=== PATIENT | female | born 1970 | race Caucasian/White ===

== ENCOUNTER 2020-06-28 08:26 | Inpatient (IN) | payer OTHER, SELFPAY ==
[2020-06-28] VITALS (10 sets, daily range): BP systolic 126–170; BP diastolic 63–86; PULSE 122–138; RESP 11–18; TEMP 36.3–37.1; O2SAT 97–100; BMI 26.1
--- NOTE | ~2020-06-28 | CT_ITS ---
EXAMINATION: CT abdomen pelvis w con DATE: 06/28/2020 09:41 INDICATION: Abdominal pain and distention for 2 to 3 months. History of alcohol abuse. TECHNIQUE: Computed tomography (CT) of the abdomen and pelvis was performed with 100 cc Omnipaque 350 intravenous contrast. Automated exposure control and iterative reconstruction technique were employe d. Exam dose: 835.11 mGy-cm total exam DLP. COMPARISON: None. FINDINGS: There is moderate moderate elevation right leaf of the diaphragm and atelectasis at the rig ht lung base The lung bases otherwise are clear. Small left pleural effusion. Normal heart size. No pericardial effusion. There is surface nodularity of liver consistent with cirrhosis. Varices and recanalization of umbilic al vein are identified, consistent with portal venous hypertension. There is a large amount of ascites. 4.5 mm hypoattenuating lesion of the right hepatic lobe (series 3 image 48), too small to definitivel y characterize but possibly a small cyst, given its relative fluid attenuation. No other hepatic spac e-occupying mass lesion is evident. The gallbladder is present. No bile duct or pancreatic duct dilatation. No pancreatic mass lesion or calcification. There is a subtle small linear lucency of the spleen; a small laceration is not excluded. The spleen measures upper limits of normal size. No subcapsular hematoma is noted. Normal morphology of the adrenal glands. No suspicious renal mass lesion or urinary tract calculus or hydroureteronephrosis. The urinary bladd er is unremarkable. Uterus and adnexal areas are unremarkable. Normal caliber of the abdominal aorta. No intraperitoneal or retroperitoneal or pelvic mass lesion or adenopathy or ascites is detected. There is nonspecific diffuse thickening of the wall of the colon, suggesting nonspecific colitis. No bowel obstruction is detected. No pneumatosis or intraperitoneal free air. Included skeletal structures are unremarkable other than degenerative changes of the lumbar spine yanet stefani. No suspicious osteolytic or osteoblastic lesions are noted. There is edema of the abdominal and pelvic nagel.. IMPRESSION: Cirrhosis, portal hypertension and prominent ascites Probable small right hepatic cyst Splenic laceration is not excluded. Small left pleural effusion Nonspecific diffuse colon wall thickening, suggesting nonspecific colitis, possibly infectious or inf lammatory Reviewed, dictated and finalized at [facility]. Reviewed, dictated and finalized at location [facility]. N SUPERVISOR IMPRESSION: Cirrhosis, portal hypertension and prominent ascites Probable small right hepatic cyst Splenic laceration is not excluded. Small left pleural effusion Nonspecific diffuse colon wall thickening, suggesting nonspecific colitis, poss ibly infectious or inflammatory
--- NOTE | ~2020-06-28 | US_ITS ---
EXAMINATION: US venous doppler [facility] DATE: 06/30/2020 14:41 INDICATION: Lower limb edema. TECHNIQUE: Grayscale ultrasound images without and with compression and Doppler ultrasound images of the bilateral lower extremity veins were obtained. COMPARISON: None. FINDINGS: The visualized portions of right common femoral vein, profunda (deep) femoral vein, femoral vein, pop liteal vein, peroneal veins, posterior tibial veins, and greater saphenous vein outflow are patent. The visualized portions of left common femoral vein, profunda femoral vein, femoral vein, popliteal v ein, peroneal veins, posterior tibial veins, and greater saphenous vein outflow are patent. IMPRESSION: 1. No deep venous thrombosis. Reviewed, dictated and finalized at location A. SOMNOGRAPHIC TECHNICIAN
--- NOTE | ~2020-06-28 | US_ITS ---
EXAMINATION: US paracentesis abd w/image DATE: 06/28/2020 11:24 INDICATION: Ascites. TECHNIQUE: The procedure and its risks, benefits, and alternatives were discussed with the patient. P otential risks discussed included bleeding and infection. The skin was prepped and draped in sterile fashion. 1% lidocaine was used for local anesthesia. Under ultrasound guidance, a 5 Fr catheter with trochar was advanced into the ascites in the left lower quadrant. Fluid was aspirated. The catheter w as removed, and a dressing was applied. There were no immediate complications. FINDINGS: Ultrasound images demonstrate ascites and the catheter within the fluid. IMPRESSION: 1. Successful ultrasound-guided paracentesis yielding 5000 mL of clear, yellow fluid. Reviewed, dictated and finalized at location A. LIER DIVERSITY DIRECTOR
--- NOTE | 2020-06-28 08:52 | ED.ABDPAIN ---
HPI - Abdominal Pain General Chief Complaint: Abdominal Pain Stated Complaint: fluid retention abd, bowel incont, anxious Time Seen by Provider: 06/28/20 08:38 History of Present Illness HPI narrative: 49 yo female with no significant past medical history presents t the ED for abdominal pain. She reports that her symptoms started toward the ed of last year. Since that time she has developed Diffuse abdominal pain, distension, poor appetite, and jaundice. She reports about 16-18 drinks per week. She does become anxious when she does not drink. No seizure or severe withdrawal symptoms. Related Data Home Medications Medication Instructions Recorded Confirmed No Home Medications 06/28/20 06/28/20 Allergies Allergy/AdvReac Type Severity Reaction Status Date / Time No Known Allergies Allergy Mild Verified 06/28/20 08:50 Review of Systems Review of Systems: All systems reviewed & are unremarkable except as noted in HPI and below Constitutional: Constitutional: Reports fatigue and Denies fever(s) ENT: Denies sore throat Cardiovascular: Cardiovascular: Denies chest pain Respiratory: Respiratory: Reports dyspnea Gastrointestinal: Gastrointestinal: Reports abdominal pain, Denies constipation, Denies diarrhea, Reports nausea and Denies vomiting Genitourinary: Genitourinary: Denies dysuria Musculoskeletal: Musculoskeletal: Denies back pain Neurologic: Denies confusion, Denies numbness and Denies weakness Hematologic/Lymphatic: Hematologic/Lymphatic: Denies easy bleeding PMFSH Past Medical History Medical History Alcohol abuse Surgical History Surgical History History of dilation and curettage (~08/2003) Family History Family History Other Hypertension Social History Social History Social History: The patient lives in [place] with her . She drinks 5 to 6 beers a day. Her Ko is her surrogate decision maker. She wishes to be a full code. Smoking status: Former smoker Tobacco type: cigarettes Alcohol intake: current Drinks per week: 70 Substance use: never Gender identity (if verbalized by the patient): Female Spiritual care concerns: No Exam Const: General: no acute distress, alert and ill appearing chronically Orientation/consciousness: patient oriented x3 HENMT: Head: normal to inspection Neck: Neck: normal visual inspection Chest: Other: Dilated capillaries Resp: Effort & Inspection: normal respiratory effort Auscultation: clear to auscultation bilaterally Cardio: Rate: tachycardic Rhythm: regular rhythm GI: GI Palp: Yes Soft to palpation, Yes Tenderness to palpation present (GI), No Guarding due to palpation present (GI) and No Rebound tenderness present Percussion: Yes Fluid wave present Skin: General skin exam: jaundice Wounds: no wounds Neuro: General: patient oriented x3, moves all extremities and CN's II-XI intact bilaterally Speech: normal speech Extrem: General: edema bilateral Psych: Affect: normal affect Course Vital Signs Vital signs: Vital Signs Temperature 37.1 C 06/28/20 08:45 Pulse Rate 138 H 06/28/20 08:45 Respiratory Rate 16 06/28/20 08:45 Blood Pressure 170/85 H 06/28/20 08:45 Pulse Oximetry 98 06/28/20 08:45 Temperature 36.8 C 06/28/20 16:00 Pulse Rate 123 H 06/28/20 16:00 Respiratory Rate 18 06/28/20 16:00 Blood Pressure 126/63 06/28/20 16:00 Pulse Oximetry 98 06/28/20 16:00 MDM - Abdominal Pain Differential Diagnosis Differential diagnosis: Likely pancreatitis and other (cirrhosis, Hep B/C, alcoholic hepatitis, peritonitis) Medical Records Attestation: I reviewed the patient's medical records. Lab Data Attestation: I reviewed the patient's lab results. Result diagrams: 06/28/20 08:59 06/28
--- NOTE | 2020-06-28 08:59 | ECG_ITS ---
Measurements Intervals [place] Rate: 121 P: 45 MA: 158 QRS: 11 QRSD: 94 T: 49 QT: 312 QTc: 444 Interpretive Statements SINUS TACHYCARDIA INCOMPLETE RIGHT BUNDLE BRANCH BLOCK DELAYED PRECORDIAL R/S TRANSITION ABNORMAL ECG Electronically Signed On 06-28-2020 9:38:08 GLOBAL RECRUITER by Aram Walters D.O.
[2020-06-28 09:07] LABS: Basophils Absolute Auto 0.2 K/mm3 (0.0-0.1); Basophils Percent Auto 0.8 % (0.2-1.2); Eosinophils Absolute Auto 1.1 K/mm3 (0-0.3); Eosinophils Percent Auto 5.4 % (0-4.4); Hematocrit 28.9 % (37.0-47.0); Hemoglobin 10.6 g/dL (12.0-15.0); Immature Granulocyte Absolute 0.38 K/mm3 (0.00-0.031); Immature Granulocyte Percent A 1.9 % (0-0.5); Lymphocytes Absolute Auto 1.76 K/mm3 (0.9-3.2); Mean Corpuscular HGB Conc 36.7 g/dl (32-36); Mean Corpuscular Hemoglobin 39.7 pg (26-34); Mean Corpuscular Volume 108.2 fl (80-100); Mean Platelet Volume 9.8 fl (7.4-10.4); Monocytes Absolute Auto 1.6 K/mm3 (0.1-0.6); Monocytes Percent Auto 8.2 % (2.6-8.5); Neutrophils Absolute Auto 14.6 K/mm3 (1.3-6.7); Neutrophils Percent Auto 74.7 % (45.5-73.1); Platelet Count Result 201 k/mm3 (150-375); Red Blood Count 2.67 M/mm3 (4.2-5.4); Red Cell Distribution Width 13.6 % (11.5-14.5); White Blood Count 19.5 K/mm3 (4.5-10.0)
[2020-06-28 09:18] LABS: INR 1.3; Prothrombin Time 17.2 Seconds (11.1-14.7)
[2020-06-28 09:19] LABS: Partial Thromboplastin Time 33.3 SECONDS (22.3-36.8)
[2020-06-28 09:21] LABS: Alanine Aminotransferase 42 U/L (4-35); Albumin Level 3.3 g/dL (3.5-5.1); Alkaline Phosphatase 530 U/L (38-126); Anion Gap 9 mmol/L (8-16); Aspartate Amino Transferase 170 U/L (14-36); Bilirubin,Total 8.5 mg/dL (0.2-1.3); Blood Urea Nitrogen 3 mg/dL (7-17); Calcium 8.4 mg/dL (8.4-10.2); Carbon Dioxide 26 mmol/L (22-30); Chloride 81 mmol/L (98-107); Estimated CRCL calculation 113 ml/min; Estimated Glomerular Filt Rate > 60; Glucose 112 mg/dL (65-105); Lipase 270 U/L (23-300); Potassium 3.5 mmol/L (3.4-5.0); Sodium 116 mmol/L (137-145)
[2020-06-28] MEDS: SODIUM CHLORIDE 0.9% IV 500 ML 999 ML IV CONT (09:25)
[2020-06-28 09:29] LABS: Ammonia 54 umol/L (9-30)
[2020-06-28 09:35] LABS: Lactic Acid Reflex 2.3 mmol/L (0.7-2.1)
[2020-06-28 10:35] LABS: Hepatitis B Surface Antigen Negative (Negative)
[2020-06-28 10:41] LABS: HAV RESULT Negative (Negative); Hepatitis B Core IgM Result Negative (Negative)
[2020-06-28 10:52] LABS: Hepatitis C Virus Antibody Negative (Negative)
[2020-06-28 12:22] LABS: Reflex Lactic Acid Yes or No Add Lactic
[2020-06-28 13:13] LABS: Appearance Peritoneal Fluid Clear (Clear); Color Peritoneal Fluid Yellow (Colorless); Source Peritoneal Fluid Peritoneal Fluid
[2020-06-28 13:14] LABS: Lymphocytes Peritoneal Fluid 36 %; Macrophages Peritoneal Fluid 2 %; Mesothelial Cells Peritoneal Fluid 21 %; Monocytes Peritoneal Fluid 24 %; Neutrophils Peritoneal Fluid 17 % (0-25); Nucleated Cells Peritoneal Flu 86 /uL (0-500); RBC Peritoneal Fluid 86 /uL (0-100000)
--- NOTE | 2020-06-28 13:25 | ADMGEN ---
This patient, Mary Leon, was admitted to IMU Room 202-01. Patient/family oriented to hospital policies and general routines including ID bracelet, bed and alarms, visiting hours, pain management, procedures, bathroom and other care routines, personal items, smoking policy, room service/diet, and visiting hours. Information on how to activate the Rapid Response Team has been discussed. Patient/Family are encouraged to report perceived risks to care and to ask questions if they do not understand what they are told or what they should do.
[2020-06-28 13:28] LABS: Lactic Acid 1.8 mmol/L (0.7-2.1)
[2020-06-28 14:01] LABS: Magnesium 1.8 mg/dL (1.6-2.3)
[2020-06-28 14:04] LABS: Creatine Kinase 57 U/L (30-135); Iron 79 ug/dL (37-170)
[2020-06-28 14:11] LABS: Transferrin 121 mg/dL (206-381)
[2020-06-28 14:14] LABS: Percent Iron Saturation 39 % (20-50)
[2020-06-28 15:26] LABS: Anion Gap 7 mmol/L (8-16); Blood Urea Nitrogen 3 mg/dL (7-17); Carbon Dioxide 28 mmol/L (22-30); Chloride 85 mmol/L (98-107); Estimated CRCL calculation 105 ml/min; Estimated Glomerular Filt Rate > 60; Glucose 108 mg/dL (65-105); Potassium 3.3 mmol/L (3.4-5.0); Sodium 120 mmol/L (137-145)
--- NOTE | 2020-06-28 15:30 | PM.IMHP ---
H&P: HPI History of Present Illness Date/Time: 06/28/20 15:30 Chief Complaint: Abdominal distension. Narrative: Mary Leon is a 49-year-old female with a history of alcohol abuse, depression, and anxiety who presented to the emergency department earlier today via private vehicle from home for evaluation of abdominal distension. It is her who encouraged her to come to the emergency department today due to increasing lower extremity edema and abdominal distension over the past month or so. Initially she thought she was retaining water as she uses a lot of salt on her food however she became concerned when her abdomen started to swell. She has not had any significant abdominal pain but instead reports diffuse abdominal pressure which she attributes to the swelling, worse with standing. She also has some discomfort in her lower back for which she has been taking ibuprofen, between 1000 and 1200 mg a day, without much benefit. On arrival to the emergency department she was jaundiced with findings of cirrhosis, portal hypertension, and ascites on CT. She has no known personal or family history of liver disease and to her knowledge she has been healthy though it does not sound as though she has seen a doctor in over 8 years. She admits to drinking 8-10 light beers a day for the last 7 months to help calm her depression and anxiety, stemming from the loss of 2 of her siblings and a [id number] within the last year. Prior to that she maintains that she only drank on rare occasions, socially and in moderation. She does not take acetaminophen but instead takes ibuprofen as detailed above. No history of hepatitis or known exposure to such. She has 1 tattoo which she got greater than 20 years ago. No history of IV drug use. Review of Systems Review of Systems: Narrative: Twelve systems were reviewed with pertinent positives and negatives as per HPI. She believes her weight has remained stable although assumes it has increased recently due to her swelling. ?I have not had a good night sleep in 4 to 5 months? due to constant worrying, anxiety, and depression. This has gotten much worse over the past year due to several deaths in the family. She denies suicidal ideation and history of suicide attempt although she apparently told her nurse today that she has had thoughts that perhaps she would be better off if she were not alive. She did not express intent to harm herself or a plan to harm herself or others. She has never had signs or symptoms of alcohol withdrawal. Reports easy bruising and bleeding. She has scattered excoriations and tells me that she does pick and scratch ?due to anxiety.? She denies pruritus. No confusion. She has noticed that her urine has been tea-colored over the past couple of weeks. No dysuria. Reports unremarkable bowel movements, with a normal BM yesterday. No acholic stools. Denies nausea and vomiting. Reports a normal appetite. No chest pain or shortness of breath. No recent cold or flu symptoms. She denies fever, chills, and sweats. Except as documented, all other systems were reviewed and are negative. [facility] Past Medical History Medical History (Updated 06/28/20 @ 21:01 by Aline Calabrese PA-C) Alcohol abuse Anxiety Depression Surgical History Surgical History History of dilation and curettage (~08/2003) Family History Family History (Updated 06/28/20 @ 21:02 by Aline Calabrese PA-C) Sibling Brain aneurysm Sibling Acute myocardial infarction Mother Alzheimer's dementia Father Diabetes mellitus Social History Social History (Updated 06/28/20 @ 21:04 by Aline Calabrese PA-C) Social History: The patient lives in [place] with her and 15-year-old son. She has a grown daughter who lives outside of the home. Not currently employed, previously worked at the [employer] in [place] but lost her job e
[2020-06-28 16:32] LABS: Add Urine Microscopic? NO; Appearance Urine Clear (Clear); Bilirubin Urine Negative (Negative); Blood Urine Negative (Negative); Color Urine Yellow (Yellow); Glucose Urine UA Negative (Negative); Ketones Urine Negative (Negative); Leukocyte Esterase Ur Negative LEU/UL (Negative); Nitrate Urine Negative (Negative); Protein Urine Negative (Negative); Urobilinogen Urine Negative mg/dL (<2.0)
[2020-06-28 16:48] LABS: Creatinine Urine 12.1 mg/dL
[2020-06-28] MEDS: LACTATED RINGERS 1,000 ML 125 ML IV CONT (17:18)
[2020-06-28] MEDS: THIAMINE HCL 200 MG/2 ML VIAL 100 MG IV PUSH (17:25)
[2020-06-28] MEDS: FOLIC ACID 1 MG TABLET PO (17:25)
[2020-06-28 18:56] LABS: CRP 6.5 mg/dL (<1.0)
[2020-06-28 19:00] LABS: Sodium 120 mmol/L (137-145)
--- NOTE | 2020-06-28 19:31 | PC.NURSE ---
Pt arrived and has admitted to daily drinking for at least 7 months. 10 drinks a day everyday. Patient states she is very anxious. She said she would never hurt herself. Patient has a fresh wound on her neck that she picked she said it was not on purpose.. Aline Calabrese was in the room and noticed the wound has been talking with patient.
[2020-06-28 20:03] LABS: Folic Acid 7.8 ng/mL (2.76->20); Vitamin B12 > 1000.0 pg/mL (239-931)
[2020-06-28 20:03] LABS: Sodium Urine Random < 5 meq/L
[2020-06-28 20:03] LABS: Acetaminophen < 10 ug/mL (10-30)
[2020-06-28] MEDS: POTASSIUM CHLORIDE 20 MEQ TABLET PO (21:14)
[2020-06-28 21:21] LABS: Amphetamine Screen Urine Negative (Negative); Barbiturate Screen Urine Negative (Negative); Benzodiazepines Screen Urine Negative (Negative); Cannabinoid Screen Urine Negative (Negative); Cocaine Screen Urine Negative (Negative); Methadone Screen Urine Negative (Negative); Opiate Screen Urine Negative (Negative); Phencyclidine Screen Urine Negative (Negative)
[2020-06-28 21:41] LABS: Hematocrit 27.4 % (37.0-47.0)
[2020-06-28 21:54] LABS: Sodium 120 mmol/L (137-145)
[2020-06-29] VITALS (10 sets, daily range): BP systolic 92–151; BP diastolic 65–77; PULSE 88–122; RESP 16–20; TEMP 36.3–37; O2SAT 96–100
[2020-06-29] MEDS: SODIUM CHLORIDE 0.9% IV 500 ML 75 ML IV CONT (00:29)
[2020-06-29 04:30] LABS: Hematocrit 26.9 % (37.0-47.0); Hemoglobin 9.6 g/dL (12.0-15.0); Mean Corpuscular HGB Conc 35.7 g/dl (32-36); Mean Corpuscular Hemoglobin 38.6 pg (26-34); Mean Platelet Volume 9.5 fl (7.4-10.4); Platelet Count Result 174 k/mm3 (150-375); Red Blood Count 2.49 M/mm3 (4.2-5.4); Red Cell Distribution Width 13.8 % (11.5-14.5); White Blood Count 16.1 K/mm3 (4.5-10.0)
[2020-06-29 04:41] LABS: INR 1.6; Prothrombin Time 19.5 Seconds (11.1-14.7)
[2020-06-29 04:42] LABS: Partial Thromboplastin Time 33.3 SECONDS (22.3-36.8)
[2020-06-29 04:43] LABS: Ammonia 38 umol/L (9-30)
[2020-06-29 04:47] LABS: Alanine Aminotransferase 34 U/L (4-35); Albumin Level 2.6 g/dL (3.5-5.1); Alkaline Phosphatase 354 U/L (38-126); Anion Gap 6 mmol/L (8-16); Aspartate Amino Transferase 110 U/L (14-36); Bilirubin,Total 8.6 mg/dL (0.2-1.3); Blood Urea Nitrogen 4 mg/dL (7-17); Calcium 8.2 mg/dL (8.4-10.2); Carbon Dioxide 27 mmol/L (22-30); Chloride 89 mmol/L (98-107); Estimated CRCL calculation 105 ml/min; Estimated Glomerular Filt Rate > 60; Glucose 98 mg/dL (65-105); Magnesium 1.6 mg/dL (1.6-2.3); Phosphorus 3.2 mg/dL (2.5-4.5); Potassium 3.6 mmol/L (3.4-5.0); Sodium 122 mmol/L (137-145)
[2020-06-29] MEDS: FOLIC ACID 1 MG TABLET PO (09:20)
[2020-06-29] MEDS: THIAMINE HCL 100 MG TABLET PO (09:20)
--- NOTE | 2020-06-29 11:24 | WPDGICN ---
Assessment and Plan Assessment and plan (1) Decompensated hepatic cirrhosis: Code(s): K72.90 - Hepatic failure, unspecified without coma; K74.60 - Unspecified cirrhosis of liver Status: Acute Assessment and Plan: new diagnosis of cirrhosis, probably due to alcohol abuse but will complete work up with blood work to rule out other chronic liver conditions ok to resume diet, given ascites will need 2 g na diet with ensure MELD score 13 she will need to have egd (to assess if EV, PHG, etc) and colonoscopy for screening- probably as outpatient given decompensated cirrhosis I think will be a good idea for her to follow up with hepatology and eventually start process for liver transplant evaluation if she can successfully quit drinking alcohol. (2) Cirrhosis of liver with ascites: Code(s): K74.60 - Unspecified cirrhosis of liver; R18.8 - Other ascites Status: Acute Assessment and Plan: no evidence of SBP, 5 liters removed will start aldactone 100 mg and lasix 40 mg daily 2g na diet (3) Alcohol abuse: Code(s): F10.10 - Alcohol abuse, uncomplicated Status: Acute Assessment and Plan: quit drinking, AA referral thiamine, mvi, diet (4) Alcoholic hepatitis with ascites: Code(s): K70.11 - Alcoholic hepatitis with ascites Status: Acute (5) Jaundice due to hepatitis: Code(s): K75.9 - Inflammatory liver disease, unspecified Status: Acute Assessment and Plan: from alcoholic hepatitis, continue to monitor (6) Anxiety: Code(s): F41.9 - Anxiety disorder, unspecified Status: Acute (7) Hyponatremia: Code(s): E87.1 - Hypo-osmolality and hyponatremia Status: Acute (8) Macrocytic anemia: Code(s): D53.9 - Nutritional anemia, unspecified Status: Acute Assessment and Plan: no gib, probably from cirrhosis and etoh abuse we can do egd and colonoscopy at some point GI Consult Note Consult date/time: 06/29/20 11:24 Reason for consult: ascites, alcoholic, cirrhosis HPI: Mary Leon is a 49 year old female who is alcoholic (she has been drinking 8-10 beers daily for last 8 months after some family members passed because anxiety) here with increase abdominal girth and leg edema last few weeks. Evaluation in ER showed jaundice with bili 8, INR 1.6, hb 10, ast 110 alt 30 alb 2.6, plat 170. CT scan cirrhosis, portal hypertension and prominent ascites, probable small right hepatic cyst and small left pleural effusion. she had 5 liters removed of ascitic fluid. Denies known history of liver disease. No illicits and hepatitis panel was negative. Never had scopes, no melena or blood in stools. She is comfortable and better after paracentesis. Review of Systems Constitutional: Constitutional: Denies chills Eyes: Eyes: Reports no additional eye complaints ENT: Reports Normal hearing present Cardiovascular: Cardiovascular: Denies diaphoresis Respiratory: Respiratory: Denies cough Gastrointestinal: Gastrointestinal: Denies hematochezia Genitourinary: Genitourinary: Denies hematuria Musculoskeletal: Musculoskeletal: Denies neck pain Integumentary/Breasts: Skin/Breast: Denies dry skin Neurologic: Denies headache(s) Psychiatric: Psychiatric: Reports anxiety Endocrine: Endocrine: Reports fatigue PMFSH Past Medical History Medical History (Updated 06/29/20 @ 11:35 by Alfred Alvarenga MD) Alcohol abuse Alcoholic hepatitis with ascites Anxiety Depression Surgical History Surgical History History of dilation and curettage (~08/2003) Family History Family History (Updated 06/28/20 @ 21:02 by Aline Calabrese PA-C) Sibling Brain aneurysm Sibling Acute myocardial infarction Mother Alzheimer's dementia Father Diabetes mellitus Social History Social History (Updated 06/28/20 @ 21:04 by SANDEEP Silverio
--- NOTE | 2020-06-29 15:37 | PM.IMPN ---
Progress Note: A&P Assessment and Plan (1) Jaundice due to hepatitis: Code(s): K75.9 - Inflammatory liver disease, unspecified Status: Acute Assessment and Plan: S/p paracentesis Sent fluid for studies Supportive care Serology pending (2) Hyponatremia: Code(s): E87.1 - Hypo-osmolality and hyponatremia Status: Acute Assessment and Plan: Trending up Hypervolemic Hyponatremia Free water restriction Continue to monitor Daily BMP (3) Macrocytic anemia: Code(s): D53.9 - Nutritional anemia, unspecified Status: Acute Assessment and Plan: Likely secondary to ETOH intake. (4) Cirrhosis of liver with ascites: Code(s): K74.60 - Unspecified cirrhosis of liver; R18.8 - Other ascites Status: Acute Assessment and Plan: Will start Lactulose Will start spironolactone Will start beta elder (5) Alcohol abuse: Code(s): F10.10 - Alcohol abuse, uncomplicated Status: Acute Assessment and Plan: Will refer to 12 step program in the outpatient setting. Subjective Date/time seen: 06/29/20 15:37 Patient states that she feels fine. Review of Systems Review of Systems: Narrative: Patient presented to ED due to jaundice and abdominal distention, s/p paracentesis. Constitutional: Comments: no weight loss, no fevers, no rigors, no chills. Eyes: Comments: icterus ENT: Comments: no throat pain. Cardiovascular: Comments: no chest pain. Respiratory: Comments: no sob. Gastrointestinal: Comments: abdominal distention. Musculoskeletal: Comments: no joint pain. Integumentary/Breasts: Comments: no rashes. Neurologic: Comments: no sensory motor deficit. Hematologic/Lymphatic: Comments: No LAP. Exam Narrative: Exam Narrative: Chronically ill looking, jaundiced abdominal distention. Const: General: comfortable, alert, awake, Physically active and ill appearing Nutritional Appearance: thin Orientation/consciousness: patient oriented x3 HENMT: Head: normal to inspection and normocephalic Ears: hearing grossly normal bilaterally General nose exam: Normal external nose present Face and sinus: normal facial exam Eyes: General: appearance normal, both eyes and all related structures Pupils: Equal, round and reactive pupils present EOM: EOMs intact bilaterally Neck: Neck: no lymphadenopathy, supple and no JVD Resp: Effort & Inspection: normal respiratory effort and able to speak in complete sentences Auscultation: clear to auscultation bilaterally Cardio: Jugular venous distension: no JVD Rate: regular rate Rhythm: regular rhythm GI: Inspection: distended Percussion: Yes Fluid wave present Skin: General skin exam: jaundice Lesions: no lesions Rashes: no rashes Trauma: no lacerations or abrasions Neuro: General: patient oriented x3 and CN's II-XI intact bilaterally Cranial nerves: Yes CN's II-XII intact bilaterally and Yes Equal, round and reactive pupils present Cognition (Neuro): normal cognition Speech: normal speech Motor exam (neuro): 5/5 motor strength present throughout Extrem: General: other (B/L LE edema.) Objective Data Vital Signs Vital Signs: Vital Signs - 24 hr 06/28/20 16:00 06/28/20 18:00 06/28/20 20:00 Temperature 98.2 F 97.3 F L Pulse Rate 128 H 127 H 131 H Respiratory Rate 18 18 Blood Pressure 126/63 126/70 Pulse Oximetry 98 98 06/28/20 22:00 06/29/20 00:00 06/29/20 02:00 Temperature 97.3 F L Pulse Rate 123 H 122 H 117 H Respiratory Rate 18 Blood Pressure 92/65 L Pulse Oximetry 98 06/29/20 04:00 06/29/20 06:00 06/29/20 08:00 Temperature 97.3 F L Pulse Rate 121 H 113 H 119 H Respiratory Rate 18 Blood Pressure 131/69 Pulse Oximetry 96 06/29/20 08:58 06/29/20 10:00 Temperature 98.6 F Pulse Rate 121 H 117 H Respiratory Rate 20 Blood Pressure 135/67 Pulse Oximetry 97 Intake/Output Intake/Output: Intake & Output 06/26/20 06/27/20 06/28/20
[2020-06-29 16:54] LABS: Basophils Absolute Auto 0.1 K/mm3 (0.0-0.1); Basophils Percent Auto 0.8 % (0.2-1.2); Eosinophils Absolute Auto 0.5 K/mm3 (0-0.3); Eosinophils Percent Auto 3.2 % (0-4.4); Hematocrit 28.1 % (37.0-47.0); Hemoglobin 9.8 g/dL (12.0-15.0); Immature Granulocyte Absolute 0.37 K/mm3 (0.00-0.031); Immature Granulocyte Percent A 2.4 % (0-0.5); Lymphocytes Absolute Auto 1.68 K/mm3 (0.9-3.2); Mean Corpuscular HGB Conc 34.9 g/dl (32-36); Mean Corpuscular Hemoglobin 39.2 pg (26-34); Mean Corpuscular Volume 112.4 fl (80-100); Mean Platelet Volume 9.7 fl (7.4-10.4); Monocytes Absolute Auto 1.5 K/mm3 (0.1-0.6); Monocytes Percent Auto 9.8 % (2.6-8.5); Neutrophils Absolute Auto 11.1 K/mm3 (1.3-6.7); Neutrophils Percent Auto 72.8 % (45.5-73.1); Platelet Count Result 177 k/mm3 (150-375); Red Cell Distribution Width 14.4 % (11.5-14.5); White Blood Count 15.2 K/mm3 (4.5-10.0)
[2020-06-29 17:16] LABS: Anion Gap 5 mmol/L (8-16); Blood Urea Nitrogen 5 mg/dL (7-17); Calcium 7.9 mg/dL (8.4-10.2); Carbon Dioxide 28 mmol/L (22-30); Chloride 89 mmol/L (98-107); Estimated CRCL calculation 105 ml/min; Estimated Glomerular Filt Rate > 60; Glucose 101 mg/dL (65-105); Potassium 3.5 mmol/L (3.4-5.0); Sodium 122 mmol/L (137-145)
--- NOTE | 2020-06-29 18:24 | PC.NURSE ---
This patient, Mary Leon, was transferred to [facility] on 06/29/20 at 1815. Personal belongings sent with patient. Report given to Zahra DAVE. Appropriate documentation sent with patient.
--- NOTE | 2020-06-29 18:25 | PC.NURSE ---
This patient, Mary Leon, was received from IMU on 06/29/20 at 1826. Patient/family oriented to unit policies and routines. Report received from JOLIE Deutsch.
[2020-06-30 05:38] VITALS: BP 134/68; PULSE 116; RESP 16; TEMP 36.5; O2SAT 100
[2020-06-30 05:59] LABS: Hematocrit 26.9 % (37.0-47.0); Hemoglobin 9.5 g/dL (12.0-15.0); Mean Corpuscular HGB Conc 35.3 g/dl (32-36); Mean Corpuscular Hemoglobin 39.6 pg (26-34); Mean Corpuscular Volume 112.1 fl (80-100); Mean Platelet Volume 9.6 fl (7.4-10.4); Platelet Count Result 167 k/mm3 (150-375); Red Cell Distribution Width 14.3 % (11.5-14.5); White Blood Count 13.8 K/mm3 (4.5-10.0)
[2020-06-30 06:07] LABS: INR 1.5
[2020-06-30 06:21] LABS: Alanine Aminotransferase 32 U/L (4-35); Albumin Level 2.7 g/dL (3.5-5.1); Alkaline Phosphatase 349 U/L (38-126); Anion Gap 8 mmol/L (8-16); Aspartate Amino Transferase 94 U/L (14-36); Bilirubin,Total 7.9 mg/dL (0.2-1.3); Blood Urea Nitrogen 3 mg/dL (7-17); Calcium 8.2 mg/dL (8.4-10.2); Carbon Dioxide 27 mmol/L (22-30); Chloride 89 mmol/L (98-107); Estimated CRCL calculation 105 ml/min; Estimated Glomerular Filt Rate > 60; Glucose 115 mg/dL (65-105); Potassium 3.1 mmol/L (3.4-5.0); Sodium 124 mmol/L (137-145)
[2020-06-30 06:49] LABS: Iron 95 ug/dL (37-170)
[2020-06-30 06:59] LABS: Percent Iron Saturation 50 % (20-50)
[2020-06-30] MEDS: POTASSIUM CHLORIDE 20 MEQ TABLET 40 MEQ PO (07:58)
[2020-06-30] MEDS: FOLIC ACID 1 MG TABLET PO (07:59)
[2020-06-30] MEDS: FUROSEMIDE 40 MG TABLET PO (07:59)
[2020-06-30] MEDS: THIAMINE HCL 100 MG TABLET 200 MG PO (07:59)
[2020-06-30] MEDS: SPIRONOLACTONE 50 MG TABLET 100 MG PO (07:59)
--- NOTE | 2020-06-30 11:59 | WPDGIPROGNO ---
Progress Note: A&P Assessment and Plan (1) Alcoholic hepatitis with ascites: Code(s): K70.11 - Alcoholic hepatitis with ascites Status: Acute Assessment and Plan: no sbp, started on aldactone and lasix with 2g na diet meld score 19 will do EGD tomorrow to assess if PHG, varices, etc. No signs of bleeding (2) Decompensated hepatic cirrhosis: Code(s): K72.90 - Hepatic failure, unspecified without coma; K74.60 - Unspecified cirrhosis of liver Status: Acute Assessment and Plan: here with new onset ascites most likely alcohol induced but ordered complete work up to rule out other chronic liver conditions will need follow up with [facility] for liver transplant evaluation at some point and also AA referral (3) Jaundice due to hepatitis: Code(s): K75.9 - Inflammatory liver disease, unspecified Status: Acute Assessment and Plan: continue to monitor she is eating (4) Alcohol abuse: Code(s): F10.10 - Alcohol abuse, uncomplicated Status: Acute Assessment and Plan: she needs to quit thiamine, mvi, diet (5) Macrocytic anemia: Code(s): D53.9 - Nutritional anemia, unspecified Status: Acute Assessment and Plan: she never had a colonoscopy- will proceed tomorrow (6) Leukocytosis: Code(s): D72.829 - Elevated white blood cell count, unspecified Status: Acute Assessment and Plan: no signs of infection but started on abx no SBP cultures no growth so far Subjective Date/time seen: 06/30/20 12:00 Interval history: she is doing better after paracentesis, comfortable, tolerated diet Review of Systems Review of Systems: All systems reviewed & are unremarkable except as noted in HPI and below Exam Const: General: comfortable, no acute distress and ill appearing chronically HENMT: General nose exam: Normal nares present Eyes: General: appearance normal, both eyes and all related structures Neck: Neck: no JVD Resp: Auscultation: clear to auscultation bilaterally Cardio: Rate: regular rate Rhythm: regular rhythm GI: Inspection: distended GI Palp: Yes Soft to palpation, No Tenderness to palpation present (GI) and No Guarding due to palpation present (GI) Percussion: Yes Fluid wave present Auscultation: normal bowel sounds Skin: General skin exam: jaundice Neuro: Speech: normal speech Motor exam (neuro): Normal motor muscle tone present throughout Extrem: General: pedal edema Psych: Mental Status: mental status grossly normal Objective Data Vital Signs Vital Signs: Vital Signs - 24 hr 06/29/20 16:06 06/29/20 17:03 06/29/20 21:30 Temperature 97.5 F L 98.1 F Pulse Rate 114 H 120 H Respiratory Rate 20 16 Blood Pressure 151/69 H 140/77 Pulse Oximetry 97 100 100 06/30/20 05:38 Temperature 97.7 F Pulse Rate 116 H Respiratory Rate 16 Blood Pressure 134/68 Pulse Oximetry 100 Intake/Output Intake/Output: Intake & Output 06/27/20 06/28/20 06/29/20 06/30/20 23:59 23:59 23:59 23:59 Intake Total 850 1340 250 Output Total 5600 1450 200 Balance -4750 -110 50 Meds/Results Medications: Active Medications Generic Name Dose Route Start Last Admin Trade Name Freq PRN Reason Stop Dose Admin Folic Acid 1 mg 06/28/20 09:00 06/30/20 07:59 Folic Acid 1 Mg Tablet PO 1 mg DAILY VLAD Administration Furosemide 40 mg 06/30/20 09:00 06/30/20 07:59 Furosemide 40 Mg Tablet PO 40 mg DAILY VLAD Administration Cefepime HCl 1 gm in 50 mls @ 100 mls/hr 06/28/20 14:00 06/30/20 06:08 Maxipime 1 Gm/D5w 50 Ml IVPB Infused Q8HR VLAD Infusion Spironolactone 100 mg 06/30/20 09:00 06/30/20 07:59 Spironolactone 50 Mg Tablet PO 100 mg QAM VLAD Administration Thiamine HCl 200 mg 06/30/20 09:00 06/30/20 07:59 Thiamine Hcl 100 Mg Tablet PO 200 mg QAM VLAD Administration Radiology Results: ITS Impressions Abdomen/Pelvis CT 06/28/20 09:49 IMPRESSIO
--- NOTE | 2020-06-30 13:00 | PM.IMPN ---
Progress Note: A&P Assessment and Plan (1) Alcoholic hepatitis with ascites: Code(s): K70.11 - Alcoholic hepatitis with ascites Status: Acute Assessment and Plan: S/p paracentesis GI on board Appreciate GI note (2) Jaundice due to hepatitis: Code(s): K75.9 - Inflammatory liver disease, unspecified Status: Acute Assessment and Plan: Unchanged Serology is pending. (3) Hyponatremia: Code(s): E87.1 - Hypo-osmolality and hyponatremia Status: Acute Assessment and Plan: Trending up Fluid restriction free water. (4) Macrocytic anemia: Code(s): D53.9 - Nutritional anemia, unspecified Status: Acute Assessment and Plan: Iron studies Likely secondary to ETOH Poor oral intake. (5) Decompensated hepatic cirrhosis: Code(s): K72.90 - Hepatic failure, unspecified without coma; K74.60 - Unspecified cirrhosis of liver Status: Acute Assessment and Plan: S/p paracentesis Started on Spironolactone. (6) Alcohol abuse: Code(s): F10.10 - Alcohol abuse, uncomplicated Status: Acute Assessment and Plan: Will refer to outpatient 12 step program. (7) Cirrhosis of liver with ascites: Code(s): K74.60 - Unspecified cirrhosis of liver; R18.8 - Other ascites Status: Acute Assessment and Plan: Likely secondary to increased ETOH intake in the last year or so after her sister's EGD and colonoscopy are planned Subjective Date/time seen: 06/30/20 13:00 Patient states that she wants to go home today. No new issues overnight. Review of Systems Review of Systems: Narrative: Feeling fatigue. Constitutional: Comments: no fevers. Eyes: Comments: icterus. ENT: Comments: no throat Cardiovascular: Comments: B/L Respiratory: Comments: no sob, no cough. Gastrointestinal: Comments: abdominal distention. Musculoskeletal: Comments: no muscle. Hematologic/Lymphatic: Comments: no lap Exam Narrative: Exam Narrative: Patient is sitting in bed. Const: General: cooperative, alert, awake and ill appearing Nutritional Appearance: thin Orientation/consciousness: patient oriented x3 Limitations: no limitations HENMT: Head: normal to inspection and normocephalic Ears: hearing grossly normal bilaterally General nose exam: Normal external nose present Face and sinus: normal facial exam Eyes: General: appearance normal, both eyes and all related structures Pupils: Equal, round and reactive pupils present EOM: EOMs intact bilaterally Neck: Neck: no lymphadenopathy, supple and no JVD Resp: Auscultation: clear to auscultation bilaterally Cardio: Rate: regular rate Rhythm: regular rhythm GI: Inspection: distended GI Palp: Yes Soft to palpation and Yes No hepatosplenomegaly present Percussion: Yes Fluid wave present Skin: General skin exam: other (telangientasia.) Neuro: General: patient oriented x3 and CN's II-XI intact bilaterally Cranial nerves: Yes CN's II-XII intact bilaterally and Yes Equal, round and reactive pupils present Cognition (Neuro): normal cognition Motor exam (neuro): 5/5 motor strength present throughout Extrem: General: pedal edema bilaterally Objective Data Vital Signs Vital Signs: Vital Signs - 24 hr 06/29/20 16:06 06/29/20 17:03 06/29/20 21:30 Temperature 97.5 F L 98.1 F Pulse Rate 114 H 120 H Respiratory Rate 20 16 Blood Pressure 151/69 H 140/77 Pulse Oximetry 97 100 100 06/30/20 05:38 Temperature 97.7 F Pulse Rate 116 H Respiratory Rate 16 Blood Pressure 134/68 Pulse Oximetry 100 Intake/Output Intake/Output: Intake & Output 06/27/20 06/28/20 06/29/20 06/30/20 23:59 23:59 23:59 23:59 Intake Total 850 1340 250 Output Total 5600 1450 200 Balance -4750 -110 50 Meds/Results Medications: Active Medications Generic Name Dose Route Start Last Admin Trade Name Evertonq PRN Reason Stop Dose Admin Bisacodyl 20 mg 06/30/20 17:00 Bisa
--- NOTE | 2020-06-30 13:39 | PC.NURSE ---
Patient to be on bowel prep. Patient is on a fluid restriction. This was discussed with Dr. Mariscal. She says to give the prep and patient can have their clear liquid tray for dinner. Patient should not have any additional free water besides that. After EGD/Colonoscopy patient is to restart fluid restriction as previously ordered.
[2020-06-30 15:00] VITALS: BP 136/78; PULSE 106; RESP 16; TEMP 36.6; O2SAT 100
[2020-06-30] MEDS: PEG (High)/E-LYTE SOLN 4,000 ML BTL 4000 ML PO (16:19)
[2020-06-30] MEDS: BISACODYL 5 MG TABLET EC 20 MG PO (16:22)
[2020-06-30] MEDS: SALINE 0.65% NAS SOLN 44 ML BTL 1 SPRAY NASAL (17:33)
[2020-06-30 21:40] VITALS: BP 132/77; PULSE 119; RESP 16; TEMP 36.4; O2SAT 100
[2020-07-01] VITALS (7 sets, daily range): BP systolic 108–133; BP diastolic 62–77; PULSE 106–120; RESP 16–26; TEMP 36.6–37.1; O2SAT 99–100
[2020-07-01] MEDS: LACTATED RINGERS 1,000 ML 150 ML IV CONT (09:12)
--- NOTE | 2020-07-01 09:27 | WPDANESEPPF ---
Anes - Initial Pre Proc Eval Procedure: Operation Date: 07/01/20 12:30 Proposed Procedures p Esophagogastroduodenoscopy & Colonoscopy - Alfred Alvarenga MD Date/Time: 07/01/20 09:27 Surgeon: Moshe Mariscal MD Pre Op Diagnosis: New Onset Cirrhosis Patient Data Age: 49 Gender: F Height: 5 ft 6 in Weight: 73 kg Last Vital Signs Temp 98.7 F 07/01/20 09:02 Pulse 118 H 07/01/20 09:02 Resp 20 07/01/20 09:02 BP 133/70 07/01/20 09:02 Pulse Ox 100 07/01/20 09:02 Allergies Allergy/AdvReac Type Severity Reaction Status Date / Time No Known Allergies Allergy Mild Verified 06/28/20 08:50 Home Medications Medication Instructions Recorded Confirmed Type No Home Medications 06/28/20 06/28/20 History Patient hx anesthesia problems: none Family hx anesthesia problems: none PMFSH Past Medical History Medical History (Updated 06/30/20 @ 12:02 by Alfred Alvarenga MD) Alcohol abuse Alcoholic hepatitis with ascites Anxiety Depression Leukocytosis Surgical History Surgical History History of dilation and curettage (~08/2003) Family History Family History (Updated 06/28/20 @ 21:02 by Aline Calabrese PA-C) Sibling Brain aneurysm Sibling Acute myocardial infarction Mother Alzheimer's dementia Father Diabetes mellitus Social History Social History (Updated 06/28/20 @ 21:04 by Aline Calabrese PA-C) Social History: The patient lives in [place] with her and 15-year-old son. She has a grown daughter who lives outside of the home. Not currently employed, previously worked at the [employer] in [place] but lost her job earlier this year. She is a former smoker. Drinks between 8 to 10 light beers a day for the past 7 months. Denies illicit substance use. Ko is her surrogate decision maker. She wishes to be a full code. Smoking status: Former smoker Tobacco type: cigarettes Alcohol intake: current Drinks per week: 70 Substance use: never Gender identity (if verbalized by the patient): Female Spiritual care concerns: No Anes - Eval Final PreProcedure Day of Procedure 07/01/20 09:27 Patient weight: normal Heart: regular rate and rhythm Lungs: clear to auscultation Airway: Mallampati scale class II Neurological: alert and oriented Last oral intake: >/= 8 hours ASA classification: IV Emergent: no Anesthetic plan: proceed Anesthesia type and monitoring: general GIVS and standard monitoring Informed Consent: The patient's anesthetic plan and its attendant risks and benefits were discussed with the patient/family/POA. Questions were solicited and answers provided to the satisfaction of the patient/family/POA.
[2020-07-01] MEDS: SALINE 0.65% NAS SOLN 44 ML BTL 1 SPRAY NASAL (11:27)
[2020-07-01] MEDS: FOLIC ACID 1 MG TABLET PO (11:28)
[2020-07-01] MEDS: THIAMINE HCL 100 MG TABLET 200 MG PO (11:28)
[2020-07-01] MEDS: SPIRONOLACTONE 50 MG TABLET 100 MG PO (11:28)
[2020-07-01] MEDS: FUROSEMIDE 40 MG TABLET PO (11:29)
[2020-07-01] MEDS: PANTOPRAZOLE 40 MG TABLET PO (11:29)
--- NOTE | 2020-07-01 14:58 | PM.DS ---
DS: Admitting Diagnosis Admitting Diagnosis Admitting Diagnosis: (1) Sepsis: Code(s): A41.9 - Sepsis, unspecified organism Status: Acute (2) Cirrhosis of liver with ascites: Code(s): K74.60 - Unspecified cirrhosis of liver; R18.8 - Other ascites Status: Acute (3) Decompensated hepatic cirrhosis: Code(s): K72.90 - Hepatic failure, unspecified without coma; K74.60 - Unspecified cirrhosis of liver Status: Acute (4) Hyponatremia: Code(s): E87.1 - Hypo-osmolality and hyponatremia Status: Acute (5) Jaundice due to hepatitis: Code(s): K75.9 - Inflammatory liver disease, unspecified Status: Acute (6) Macrocytic anemia: Code(s): D53.9 - Nutritional anemia, unspecified Status: Acute (7) Alcohol abuse: Code(s): F10.10 - Alcohol abuse, uncomplicated Status: Acute (8) Elevated blood pressure reading: Code(s): R03.0 - Elevated blood-pressure reading, without diagnosis of hypertension Status: Acute Additional Plan The patient is being admitted with decompensated cirrhosis, a new diagnosis for her, which may very well be secondary to alcohol abuse although she apparently has only been drinking heavily for 7 months time. Alkaline phosphatase is markedly elevated however and may reflect another underlying etiology although could be secondary to alcoholic hepatitis. Paracentesis revealed yellow fluid which will be sent for laboratory analysis and culture. Alcohol cessation is imperative starting today, and was discussed extensively with the patient. She denies ever having signs or symptoms of alcohol withdrawal however we will initiate CIWA protocol. Blood pressures have been running high and will be monitored closely as she may require antihypertensives. DS: Discharge Diagnosis Discharge Diagnosis (1) Alcoholic hepatitis with ascites: Code(s): K70.11 - Alcoholic hepatitis with ascites Status: Acute (2) Leukocytosis: Code(s): D72.829 - Elevated white blood cell count, unspecified Status: Acute (3) Elevated blood pressure reading: Code(s): R03.0 - Elevated blood-pressure reading, without diagnosis of hypertension Status: Acute (4) Jaundice due to hepatitis: Code(s): K75.9 - Inflammatory liver disease, unspecified Status: Acute (5) Hyponatremia: Code(s): E87.1 - Hypo-osmolality and hyponatremia Status: Acute (6) Macrocytic anemia: Code(s): D53.9 - Nutritional anemia, unspecified Status: Acute (7) Decompensated hepatic cirrhosis: Code(s): K72.90 - Hepatic failure, unspecified without coma; K74.60 - Unspecified cirrhosis of liver Status: Acute (8) Cirrhosis of liver with ascites: Code(s): K74.60 - Unspecified cirrhosis of liver; R18.8 - Other ascites Status: Acute (9) Alcohol abuse: Code(s): F10.10 - Alcohol abuse, uncomplicated Status: Acute (10) Sepsis: Code(s): A41.9 - Sepsis, unspecified organism Status: Acute Assessment and Plan: Was ruled out (11) Depression: Code(s): F32.9 - Major depressive disorder, single episode, unspecified Status: Acute (12) Anxiety: Code(s): F41.9 - Anxiety disorder, unspecified Status: Acute DS: Summary Hospital Course Reason for hospitalization: Increased abdominal gird. Hospital Course: Mary Leon is a 49-year-old female with a history of alcohol abuse, depression, and anxiety who presented to the emergency department from home for evaluation of abdominal distension,lower extremity edema over the past month or so. Initially she thought she was retaining water as she uses a lot of salt on her food however she became concerned when her abdomen started to swell. She has not had any significant abdominal pain but instead reports diffuse abdominal pressure which she attributes to the swelling, worse with standing. She also has some discomfort in h
[2020-07-02 02:07] LABS: Amylase Peritoneal Fluid 13 U/L
[2020-07-02 07:09] LABS: Osmolality, Urine 73 mOsm/kg (50-1200)
[2020-07-02 23:46] LABS: Glucose Peritoneal Fluid 121 mg/dL; LDH Peritoneal Fluid 23 U/L (<63)
[2020-07-03 13:59] LABS: Total Protein Peritoneal Fluid <3.0 g/dL
[2020-07-04 11:43] LABS: GGT 472 U/L (3-70)
[2020-07-04 12:42] LABS: Ceruloplasmin 24 mg/dL (18-53)
[2020-07-04 22:18] LABS: Mitochondrial (M2) Ab (IgG) 40.5 U (<=20.0)
[2020-07-05 09:59] LABS: Albumin Peritoneal Fluid 0.3 g/dL
== END 2020-07-01 16:05 | disposition home or self-care (01) | DRG 433 ==
LOC: ANHED 09:25 → ANHIMU 12:19 → ANH2MED 06-29 18:25
PROVIDERS: Internal Medicine Gastroenterology; Physician Assistant; Admitting Provider Internal Medicine; Emergency Provider Emergency Medicine; PCP Family Medicine; Visit Provider Internal Medicine
PROC: 0DJ08ZZ Inspection of Upper Intestinal Tract, Via Natural or Artificial Opening Endoscopic (ICD-10-PCS; CPT 43235; principal; 2020-07-01 12:30)
DX: K70.11 Alcoholic hepatitis with ascites; E87.1 Hypo-osmolality and hyponatremia; K74.60 Unspecified cirrhosis of liver; K72.90 Hepatic failure, unspecified without coma; K25.9 Gastric ulcer, unspecified as acute or chronic, without hemorrhage or perforation; K29.70 Gastritis, unspecified, without bleeding; Z12.11 Encounter for screening for malignant neoplasm of colon; K64.8 Other hemorrhoids; R03.0 Elevated blood-pressure reading, without diagnosis of hypertension; F10.10 Alcohol abuse, uncomplicated; D72.829 Elevated white blood cell count, unspecified; D53.9 Nutritional anemia, unspecified; F32.9 Major depressive disorder, single episode, unspecified; F41.9 Anxiety disorder, unspecified; Z87.891 Personal history of nicotine dependence
CPT/HCPCS: 36415; 49083; 74177; 80048; 80053; 80074; 80307; 81003; 81025; 82042; 82104; 82140; 82150; 82390; 82533; 82550; 82570; 82607; 82728; 82746; 82945; 82977; 83520; 83540; 83550; 83605; 83615; 83690; 83735; 83930; 83935; 84100; 84157; 84295; 84300; 84443; 84466; 85014; 85018; 85025; 85027; 85610; 85730; 86038; 86140; 87040; 87070; 87075; 87205; 88305; 89051; 93005; 93970; 96360; 99285; A9270; J0692; J2704; J3411; J7040; J7120; Q9967

== ENCOUNTER 2023-06-03 08:32 | Emergency (ER) | payer OTHER, SELFPAY ==
[2023-06-03] VITALS (9 sets, daily range): BP systolic 111–124; BP diastolic 64–82; PULSE 67–95; RESP 13–20; TEMP 36.9; O2SAT 99–100
--- NOTE | ~2023-06-03 | XR_ITS ---
Clinical Indication: Bloating PA and lateral views of the chest: Comparison: None Findings: The lungs are clear, without evidence of focal consolidation or pleural effusion. Cardiome diastinal silhouette is within normal limits. Bones and soft tissues are unremarkable. Impression: Normal chest. Reviewed, dictated and finalized at location . UCTION CONTROL ANALYST Impression: Normal chest.
--- NOTE | ~2023-06-03 | CT_ITS ---
EXAMINATION: CT abdomen pelvis w con DATE: 06/03/2023 12:37 INDICATION: Cirrhosis of the liver. Abdominal pain and bloating. TECHNIQUE: Computed tomography (CT) of the abdomen and pelvis was performed with 100 mL Omnipaque 350 intravenous contrast. Automated exposure control and iterative reconstruction technique were employe d. The dose-length product was 411.94 mGy-cm. COMPARISON: CT abdomen and pelvis 06/28/20 FINDINGS: The visualized portions of the lung bases are clear without pneumonia or pleural effusion. The heart size is normal. No pericardial effusion. The liver demonstrates hypertrophy of left lateral segment and surface nodularity, consistent with cirrhosis. There is a 10 mm cyst in the liver. There is moderate splenomegaly. There are large periumbilical varices. There are gallstones in the gallbla dder, which is normal in size. Paraesophageal varices are noted. The pancreas, adrenal glands, and ri ght kidney are normal. There are cysts in left kidney measuring up to 4 mm. There are no dilated loop s of bowel. The appendix is normal. There is a large volume of ascites. There are no pathologically e nlarged lymph nodes. There is lumbar levoscoliosis and severe spondylosis. IMPRESSION: 1. Large volume of ascites. 2. Cirrhosis of the liver with portal venous hypertension. Reviewed, dictated and finalized at location A. TED CIRCUIT DESIGNER
--- NOTE | ~2023-06-03 | US_ITS ---
EXAMINATION: US paracentesis abd w/image DATE: 06/03/2023 14:41 INDICATION: Ascites. TECHNIQUE: The procedure and its risks, benefits, and alternatives were discussed with the patient. P otential risks discussed included bleeding and infection. The skin was prepped and draped in sterile fashion. 1% lidocaine was used for local anesthesia. Under ultrasound guidance, a 5 Fr catheter with trochar was advanced into the ascites in the right lower quadrant. Fluid was aspirated. The catheter was removed, and a dressing was applied. There were no immediate complications. FINDINGS: Ultrasound images demonstrate ascites and the catheter within the fluid. IMPRESSION: 1. Successful ultrasound-guided paracentesis yielding 3900 mL of clear, yellow fluid. Reviewed, dictated and finalized at location A. M TENENS HOSPITALIST
--- NOTE | 2023-06-03 09:37 | ED.ABDPAIN ---
HPI - Abdominal Pain General Chief Complaint: Abdominal Pain <Shayna Hensley APRN - Last Filed: 06/03/23 16:41> Stated Complaint: PBC <Shayna Hensley APRN - Last Filed: 06/03/23 16:41> Time Seen by Provider: 06/03/23 09:18 <Shayna Hensley APRN - Last Filed: 06/03/23 16:41> Source: patient and family <Shayna Hensley APRN - Last Filed: 06/03/23 16:41> Mode of arrival: ambulatory <Shayna Hensley APRN - Last Filed: 06/03/23 16:41> Limitations: no limitations <Shayna Hensley APRN - Last Filed: 06/03/23 16:41> History of Present Illness HPI narrative: patient is a pleasant 52 yo female with past medical hx as noted below who presents to the ER today ambulatory with a steady gait with for evaluation of abdominal distention/bloating and lower leg swelling. She states her abdomen doesn't hurt she just feels bloated/full. She has a history of primary biliary cholangitis and has seen specialist at [facility], she is also on 4 different medications for that. she states he has a history of alcoholism but she does not drink but a glass of wine occasionally. Denies drug use. States she felt like this started after thanksgiving with her being more tired and mild swelling but it has gotten worse. denies chest pain, shortness of breath, fever, chills, dizziness, headache, urinary symptoms, diarrhea, constipation, cough, nausea, vomiting. she states her typical weight is around 118-120 lbs which is much lower than hers today. <Shayna Hensley APRN - Last Filed: 06/03/23 16:41> Related Data Allergies/Adverse Reactions: Allergies Allergy/AdvReac Type Severity Reaction Status Date / Time No Known Allergies Allergy Mild Verified 06/03/23 11:52 <Shayna Hensley APRN - Last Filed: 06/03/23 16:41> Review of Systems Review of Systems: CONSTITUTIONAL: +fatigue. Denies fever, chills, or sweats. EYES: Denies visual changes, redness, or discharge. ENT: Denies rhinorrhea, congestion, sore throat, or otalgia. CARDIOVASCULAR: + pitting edema/swelling to bilateral lower extremities from knee distally. Denies chest pain, palpitations. RESPIRATORY: Denies cough or dyspnea. GASTROINTESTINAL: +abdominal distention/bloating. Denies abdominal pain, nausea, vomiting, or diarrhea. GENITOURINARY: Denies dysuria or hematuria. SKIN: Denies rash or itching. MUSCULOSKELETAL: Denies back pain, joint pain, or myalgia. NEUROLOGIC: Denies headache, numbness, or weakness. PSYCHIATRIC: Denies anxiety or depression. <Shayna Hensley APRN - Last Filed: 06/03/23 16:41> All systems reviewed & are unremarkable except as noted in HPI and below <Shayna Hensley APRN - Last Filed: 06/03/23 16:41> [facility] Past Medical History Medical History: Medical History Alcohol abuse Alcoholic hepatitis with ascites Anxiety Colon cancer screening Depression Leukocytosis Primary biliary cholangitis <Shayna Hensley APRN - Last Filed: 06/03/23 16:41> Surgical History Surgical History: Surgical History History of dilation and curettage (~08/2003) <Shayna Hensley APRN - Last Filed: 06/03/23 16:41> Family History Family History: Family History Sibling Brain aneurysm Sibling Acute myocardial infarction Mother Alzheimer's dementia Father Diabetes mellitus <Shayna Hensley APRN - Last Filed: 06/03/23 16:41> Social History Social History: Social History Social History: The patient lives in [place] with her and 15-year-old son. She has a grown daughter who lives outside of the home. Not currently employed, previously worked at the [employer] in [place] but lost her job earlier this year. She is a former smoker. Drinks between 8 to 10 light beers a day for
[2023-06-03 12:08] LABS: INR 1.3; Prothrombin Time 17.4 Seconds (11.1-14.7)
[2023-06-03 12:09] LABS: Partial Thromboplastin Time 28.9 SECONDS (22.3-36.8)
[2023-06-03 12:13] LABS: Alanine Aminotransferase 28 U/L (6-35); Albumin Level 3.2 g/dL (3.5-5.1); Alkaline Phosphatase 114 U/L (38-126); Anion Gap 6 mmol/L (8-16); Aspartate Amino Transferase 62 U/L (14-36); Bilirubin,Total 4.5 mg/dL (0.2-1.3); Blood Urea Nitrogen 5 mg/dL (7-17); Calcium 8.6 mg/dL (8.4-10.2); Carbon Dioxide 26 mmol/L (22-30); Chloride 104 mmol/L (98-107); Estimated Glomerular Filt Rate > 60; Glucose 96 mg/dL (65-110); Lactic Acid Reflex 2.4 mmol/L (0.7-2.0); Lipase 216 U/L (23-300); Magnesium 1.9 mg/dL (1.6-2.3); Phosphorus 3.4 mg/dL (2.5-4.5); Potassium 3.1 mmol/L (3.4-5.0); Sodium 136 mmol/L (137-145)
[2023-06-03 12:15] LABS: Appearance Urine Cloudy (Clear); Bacteria Urine None Seen /hpf; Bilirubin Urine 2+ (Negative); Blood Urine Negative (Negative); Color Urine Dark Yellow (Yellow); Glucose Urine UA Negative (Negative); Ketones Urine Trace mg/dL (Negative); Leukocyte Esterase Ur Trace LEU/UL (Negative); Mucus Urine Present /lpf; Need Manual Microscopic Reviewed; Nitrate Urine Positive (Negative); Non Pathogenic Casts 0-2; Protein Urine Trace mg/dL (Negative); Specific Grav Ur 1.025 (1.001-1.035); Squamous Epithelial Cell Urine Occasional /hpf (Few); WBC Urine 0-5 /hpf; pH Urine 5.5 (5.0-9.0)
[2023-06-03 12:24] LABS: Add Urine Microscopic? YES
[2023-06-03 13:25] LABS: Basophils Absolute Auto 0.1 K/mm3 (0.0-0.1); Basophils Percent Auto 0.9 % (0.2-1.2); Eosinophils Percent Auto 0.6 % (0-4.4); Hemoglobin 11.7 g/dL (12.0-15.0); Immature Granulocyte Absolute 0.02 K/mm3 (0.00-0.031); Immature Granulocyte Percent A 0.4 % (0-0.5); Lymphocytes Absolute Auto 0.61 K/mm3 (0.9-3.2); Lymphocytes Percent Auto 11.5 % (18.3-44.2); Mean Corpuscular HGB Conc 33.4 g/dl (32-36); Mean Corpuscular Hemoglobin 40.1 pg (26-34); Mean Corpuscular Volume 119.9 fl (80-100); Mean Platelet Volume 12.4 fl (7.4-10.4); Monocytes Absolute Auto 0.4 K/mm3 (0.1-0.6); Monocytes Percent Auto 6.6 % (2.6-8.5); Neutrophils Absolute Auto 4.2 K/mm3 (1.3-6.7); Platelet Count Result 127 k/mm3 (150-375); Red Blood Count 2.92 M/mm3 (4.2-5.4); Red Cell Distribution Width 14.3 % (11.5-14.5); White Blood Count 5.3 K/mm3 (4.5-10.0)
[2023-06-03 13:55] LABS: Hypochromasia 1+ (NORMAL); Platelet Estimate Adequate (Adequate); Schistocytes None Seen (NORMAL)
[2023-06-03 14:56] LABS: Reflex Lactic Acid Yes or No Add Lactic
[2023-06-03] MEDS: POTASSIUM CHLORIDE 20 MEQ ER TABLET 40 MEQ PO (15:27)
[2023-06-03] MEDS: FUROSEMIDE INJ 40 MG/4 ML VIAL 20 MG IV PUSH (15:28)
== END 2023-06-03 15:35 | disposition home or self-care (01) ==
PROVIDERS: Emergency Provider Nurse Practitioner; PCP Family Medicine
DX: K74.3 Primary biliary cirrhosis (principal); K74.60 Unspecified cirrhosis of liver; R18.8 Other ascites; E87.6 Hypokalemia; Z87.891 Personal history of nicotine dependence; K76.6 Portal hypertension
CPT/HCPCS: 36415; 49083; 71046; 74177; 80053; 81001; 82248; 83605; 83690; 83735; 84100; 85025; 85610; 85730; 96374; 99284; A9270; J1940; Q9967

== ENCOUNTER 2023-09-09 08:45 | Emergency (ER) | payer OTHER, SELFPAY ==
--- NOTE | ~2023-09-09 | US_ITS ---
EXAMINATION: US paracentesis abd w/image DATE: 09/09/2023 11:32 INDICATION: Abdominal distention TECHNIQUE: The procedure and its risks and benefits were discussed with the patient. Potential risks discussed included bleeding and infection. The skin was prepped and draped in sterile fashion. 1% lid ocaine was used for local anesthesia. Under ultrasound guidance, a 5 Fr catheter with trochar was adv anced into the ascites in the left lower quadrant. Fluid was aspirated into vacuum bottles. The lilibeth ter was removed, and a dressing was applied. There were no immediate complications. FINDINGS: Ultrasound images demonstrate ascites and the catheter within the fluid. IMPRESSION: 1. Successful ultrasound-guided paracentesis yielding 5000 mL of clear yellow fluid. Reviewed, dictated and finalized at location A.
[2023-09-09 08:46] VITALS: BP 150/89; PULSE 130; RESP 16; TEMP 36.6; O2SAT 100
[2023-09-09 09:47] VITALS: BP 125/93; PULSE 93; RESP 16; O2SAT 97
[2023-09-09 09:49] VITALS: BP 125/93; PULSE 103; RESP 16; TEMP 36.7; O2SAT 98
[2023-09-09 10:00] VITALS: BP 138/80; PULSE 97; RESP 16; TEMP 36.6; O2SAT 98
[2023-09-09 10:13] LABS: Basophils Absolute Auto 0.1 K/mm3 (0.0-0.1); Basophils Percent Auto 1.2 % (0.2-1.2); Eosinophils Absolute Auto 0.1 K/mm3 (0-0.3); Eosinophils Percent Auto 1.4 % (0-4.4); Hematocrit 36.8 % (37.0-47.0); Hemoglobin 12.2 g/dL (12.0-15.0); Immature Granulocyte Absolute 0.03 K/mm3 (0.00-0.031); Immature Granulocyte Percent A 0.7 % (0-0.5); Immature Platelet Fraction Pct 5.1 % (0.9-11.2); Lymphocytes Absolute Auto 0.57 K/mm3 (0.9-3.2); Lymphocytes Percent Auto 13.5 % (18.3-44.2); Mean Corpuscular HGB Conc 33.2 g/dl (32-36); Mean Corpuscular Hemoglobin 38.9 pg (26-34); Mean Corpuscular Volume 117.2 fl (80-100); Mean Platelet Volume 10.6 fl (7.4-10.4); Monocytes Absolute Auto 0.4 K/mm3 (0.1-0.6); Monocytes Percent Auto 8.7 % (2.6-8.5); Neutrophils Absolute Auto 3.2 K/mm3 (1.3-6.7); Neutrophils Percent Auto 74.5 % (45.5-73.1); Platelet Count Result 125 k/mm3 (150-375); Red Blood Count 3.14 M/mm3 (4.2-5.4); White Blood Count 4.2 K/mm3 (4.5-10.0)
[2023-09-09 10:20] LABS: Alanine Aminotransferase 27 U/L (6-35); Albumin Level 3.1 g/dL (3.5-5.1); Alkaline Phosphatase 166 U/L (38-126); Anion Gap 3 mmol/L (8-16); Aspartate Amino Transferase 64 U/L (14-36); Bilirubin,Total 5.6 mg/dL (0.2-1.3); Blood Urea Nitrogen 5 mg/dL (7-17); Calcium 8.9 mg/dL (8.4-10.2); Carbon Dioxide 27 mmol/L (22-30); Chloride 105 mmol/L (98-107); Estimated CRCL calculation 128 ml/min; Estimated Glomerular Filt Rate > 60; Glucose 138 mg/dL (65-110); Potassium 3.2 mmol/L (3.4-5.0); Sodium 135 mmol/L (137-145)
[2023-09-09 10:24] LABS: INR 1.3; Prothrombin Time 17.4 Seconds (11.1-14.7)
[2023-09-09 10:30] VITALS: BP 127/84; PULSE 96; RESP 16; TEMP 36.7; O2SAT 100
[2023-09-09 10:39] LABS: Anisocytosis 1+; Platelet Estimate Adequate (Adequate); Polychromasia 1+; Schistocytes None Seen
--- NOTE | 2023-09-09 12:25 | ED.ABDPAIN ---
HPI - Abdominal Pain General Chief Complaint: Abdominal Pain Stated Complaint: ASCITES WANTS DRAINED Time Seen by Provider: 09/09/23 09:17 History of Present Illness HPI narrative: Patient is a 52-year-old female who presents ER with abdominal distension. Worsening over last week. Reports she last had her abdomen tapped in May of 2023. No fevers or chills or sweats. Last alcohol ingestion was in last week as her mother is . Shows a tomorrow. Abdomen is uncomfortable and she would like it decompressed. No fevers or chills or sweats. No diarrhea. No chest pain or chest pressure. Follows with Dr. Arango. Related Data Allergies Allergy/AdvReac Type Severity Reaction Status Date / Time No Known Allergies Allergy Mild Verified 06/03/23 11:52 Review of Systems Review of Systems: All systems reviewed & are unremarkable except as noted in HPI and below Constitutional: Constitutional: Reports no additional constitutional complaints ENT: Reports system reviewed and no additional complaints, except as documented Cardiovascular: Cardiovascular: Reports no additional cardiovascular complaints Respiratory: Respiratory: Reports no additional respiratory complaints Gastrointestinal: Gastrointestinal: Reports abdominal pain, Denies diarrhea, Denies nausea and Denies vomiting Genitourinary: Genitourinary: Reports no additional female genitourinary complaints [facility] Past Medical History Medical History Alcohol abuse Alcoholic hepatitis with ascites Anxiety Colon cancer screening Depression Leukocytosis Primary biliary cholangitis Surgical History Surgical History History of dilation and curettage (~08/2003) Family History Family History Sibling Brain aneurysm Sibling Acute myocardial infarction Mother Alzheimer's dementia Father Diabetes mellitus Social History Social History Social History: The patient lives in [place] with her and 15-year-old son. She has a grown daughter who lives outside of the home. Not currently employed, previously worked at the [employer] in [place] but lost her job earlier this year. She is a former smoker. Drinks between 8 to 10 light beers a day for the past 7 months. Denies illicit substance use. Ko is her surrogate decision maker. She wishes to be a full code. Smoking status: Former smoker Tobacco type: cigarettes Alcohol intake: current Drinks per week: 70 Substance use: never Gender identity (if verbalized by the patient): Female Spiritual care concerns: No Exam Narrative: GENERAL: Well-appearing, well-nourished, and in no acute distress. HEAD: Normocephalic, atraumatic. ENT: Mucous membranes moist. NECK: Supple. CHEST: Clear to auscultation. No respiratory distress. HEART: Regular rate and rhythm. Normal peripheral pulses. ABDOMEN: Soft, nontender, Distended with ascites. EXTREMITIES: Normal range of motion. No edema. SKIN: Warm, dry, Mild jaundice. NEURO: Alert and oriented x3. PSYCH: Normal mood and affect. Course Course Emergency Course: Patient tolerated paracentesis. labs appear to be a baseline I am not concerned about SBP.Appropriate for discharge home. Vital Signs Vital signs: Vital Signs Temperature 97.9 F 09/09/23 08:46 Pulse Rate 130 H 09/09/23 08:46 Respiratory Rate 16 09/09/23 08:46 Blood Pressure 150/89 H 09/09/23 08:46 Pulse Oximetry 100 09/09/23 08:46 Oxygen Delivery Room Air 09/09/23 08:46 Temperature 98.0 F 09/09/23 10:30 Pulse Rate 96 09/09/23 10:30 Respiratory Rate 16 09/09/23 10:30 Blood Pressure 127/84 09/09/23 10:30 Pulse Oximetry 100 09/09/23 10:30 Oxygen Delivery Room Air 09/09/23 08:46
[2023-09-09 12:42] VITALS: BP 121/70; PULSE 84; RESP 18; O2SAT 100
== END 2023-09-09 12:43 | disposition home or self-care (01) ==
PROVIDERS: Emergency Provider Emergency Medicine; PCP Family Medicine
DX: R18.8 Other ascites (principal); Z87.891 Personal history of nicotine dependence
CPT/HCPCS: 36415; 49083; 80053; 85025; 85055; 85610; 85730; 99283

== ENCOUNTER 2023-10-18 12:19 | Outpatient (CLI) | payer OTHER, SELFPAY ==
--- NOTE | ~2023-10-18 | US_ITS ---
EXAMINATION: US paracentesis abd w/image DATE: 10/18/2023 13:23 INDICATION: Unspecified cirrhosis of liver. Ascites. TECHNIQUE: The procedure and its risks, benefits, and alternatives were discussed with the patient. P otential risks discussed included bleeding and infection. The skin was prepped and draped in sterile fashion. 1% lidocaine was used for local anesthesia. Under ultrasound guidance, a 5 Fr catheter with trochar was advanced into the ascites in the left lower quadrant. Fluid was aspirated. The catheter w as removed, and a dressing was applied. There were no immediate complications. FINDINGS: Ultrasound images demonstrate ascites and the catheter within the fluid. IMPRESSION: 1. Successful ultrasound-guided paracentesis yielding 5000 mL of yellow fluid. Reviewed, dictated and finalized at location A.
== END 2023-10-18 12:20 | disposition home or self-care (01) ==
LOC: ANHIMG 12:21
PROVIDERS: PCP Family Medicine; Visit Provider Physician Assistant
DX: K74.60 Unspecified cirrhosis of liver (principal); R18.8 Other ascites
CPT/HCPCS: 49083

== ENCOUNTER 2023-11-29 13:06 | Outpatient (CLI) | payer OTHER, SELFPAY ==
--- NOTE | ~2023-11-29 | US_ITS ---
EXAMINATION: US paracentesis abd w/image DATE: 11/29/2023 14:53 INDICATION: Ascites. TECHNIQUE: The procedure and its risks and benefits were discussed with the patient. Potential risks discussed included bleeding and infection. The skin was prepped and draped in sterile fashion. 1% lid ocaine was used for local anesthesia. Under ultrasound guidance, a 5 Fr catheter with trochar was adv anced into the ascites in the left lower quadrant. Fluid was aspirated into vacuum bottles. The lilibeth ter was removed, and a dressing was applied. There were no immediate complications. FINDINGS: Ultrasound images demonstrate ascites and the catheter within the fluid. IMPRESSION: 1. Successful ultrasound-guided paracentesis yielding 5000 mL of cloudy yellowish fluid. Reviewed, dictated and finalized at location A. IMPRESSION: 1. Successful ultrasound-guided paracentesis yielding 5000 mL of cloudy yellow isaac fluid.
[2023-11-29 13:31] LABS: Immature Platelet Fraction Pct 2.6 % (0.9-11.2); Platelet Count Result 114 k/mm3 (150-375)
[2023-11-29 13:41] LABS: INR 1.6; Prothrombin Time 19.3 Seconds (11.1-14.7)
== END 2023-11-29 13:07 | disposition home or self-care (01) ==
LOC: ANHIMG 13:10
PROVIDERS: PCP Family Medicine; Visit Provider Physician Assistant
DX: R18.8 Other ascites (principal)
CPT/HCPCS: 36415; 49083; 85049; 85055; 85610

== ENCOUNTER 2023-12-20 09:55 | Outpatient (CLI) | payer OTHER, SELFPAY ==
--- NOTE | ~2023-12-20 | US_ITS ---
EXAMINATION: US paracentesis abd w/image DATE: 12/20/2023 10:52 INDICATION: Ascites. TECHNIQUE: The procedure and its risks, benefits, and alternatives were discussed with the patient. P otential risks discussed included bleeding and infection. The skin was prepped and draped in sterile fashion. 1% lidocaine was used for local anesthesia. Under ultrasound guidance, a 5 Fr catheter with trochar was advanced into the ascites in the left lower quadrant. Fluid was aspirated. The catheter w as removed, and a dressing was applied. There were no immediate complications. FINDINGS: Ultrasound images demonstrate ascites and the catheter within the fluid. IMPRESSION: 1. Successful ultrasound-guided paracentesis yielding 5000 mL of cloudy, yellow fluid. Reviewed, dictated and finalized at location A. IMPRESSION: 1. Successful ultrasound-guided paracentesis yielding 5000 mL of cloudy, yello w fluid.
== END 2023-12-20 09:56 | disposition home or self-care (01) ==
PROVIDERS: PCP Family Medicine; Visit Provider Physician Assistant
DX: K74.60 Unspecified cirrhosis of liver (principal); R18.8 Other ascites
CPT/HCPCS: 49083

== ENCOUNTER 2023-12-29 08:52 | Outpatient (CLI) | payer OTHER, SELFPAY ==
--- NOTE | ~2023-12-29 | US_ITS ---
EXAMINATION: US paracentesis abd w/image DATE: 12/29/2023 10:19 INDICATION: Ascites. TECHNIQUE: The procedure and its risks and benefits were discussed with the patient. Potential risks discussed included bleeding and infection. The skin was prepped and draped in sterile fashion. 1% lid ocaine was used for local anesthesia. Under ultrasound guidance, a 5 Fr catheter with trochar was adv anced into the ascites in the left lower quadrant. Fluid was aspirated into vacuum bottles. The lilbieth ter was removed, and a dressing was applied. There were no immediate complications. FINDINGS: Ultrasound images demonstrate ascites and the catheter within the fluid. IMPRESSION: 1. Successful ultrasound-guided paracentesis yielding 5000 mL of cloudy yellow fluid. Reviewed, dictated and finalized at location A.
== END 2023-12-29 08:53 | disposition home or self-care (01) ==
PROVIDERS: PCP Physician Assistant; Visit Provider Family Medicine
DX: R18.8 Other ascites (principal)
CPT/HCPCS: 49083

== ENCOUNTER 2023-12-31 09:44 | Outpatient (CLI) | payer OTHER, SELFPAY ==
--- NOTE | ~2023-12-31 | US_ITS ---
EXAMINATION: US paracentesis abd w/image DATE: 12/31/2023 11:37 INDICATION: Ascites. TECHNIQUE: The procedure and its risks and benefits were discussed with the patient. Potential risks discussed included bleeding and infection. The skin was prepped and draped in sterile fashion. 1% lid ocaine was used for local anesthesia. Under ultrasound guidance, a 5 Fr catheter with trochar was adv anced into the ascites in the left lower quadrant. Fluid was aspirated into vacuum bottles. The lilibeth ter was removed, and a dressing was applied. There were no immediate complications. FINDINGS: Ultrasound images demonstrate ascites and the catheter within the fluid. IMPRESSION: 1. Successful ultrasound-guided paracentesis yielding 5000 mL of milky yellow fluid. Reviewed, dictated and finalized at location A.
== END 2023-12-31 09:45 | disposition home or self-care (01) ==
PROVIDERS: PCP Physician Assistant; Visit Provider Physician Assistant
DX: K74.60 Unspecified cirrhosis of liver (principal); R18.8 Other ascites
CPT/HCPCS: 49083

== ENCOUNTER 2024-01-06 13:20 | Outpatient (CLI) | payer OTHER, SELFPAY ==
--- NOTE | ~2024-01-06 | US_ITS ---
EXAMINATION: US paracentesis abd w/image DATE: 01/06/2024 14:58 INDICATION: Cirrhosis of liver with ascites TECHNIQUE: The procedure and its risks and benefits were discussed with the patient. Potential risks discussed included bleeding and infection. The skin was prepped and draped in sterile fashion. 1% lid ocaine was used for local anesthesia. Under ultrasound guidance, a 5 Fr catheter with trochar was adv anced into the ascites in the left lower quadrant. Fluid was aspirated into vacuum bottles. The lilibeth ter was removed, and a dressing was applied. There were no immediate complications. FINDINGS: Ultrasound images demonstrate ascites and the catheter within the fluid. IMPRESSION: 1. Successful ultrasound-guided paracentesis yielding 5000 mL of light yellow fluid. Reviewed, dictated and finalized at location A.
== END 2024-01-06 13:21 | disposition home or self-care (01) ==
PROVIDERS: PCP Physician Assistant; Visit Provider Physician Assistant
DX: K74.60 Unspecified cirrhosis of liver (principal); R18.8 Other ascites
CPT/HCPCS: 49083